=== PATIENT | female | born 1930 | race Caucasian/White ===

== ENCOUNTER 2017-05-31 14:09 | Emergency (ER) | payer MEDICARE, OTHER ==
[~2017-05-31] VITALS: Ht 154.9 cm; Wt 42.2 kg
[~2017-05-31 14:09] MED LIST: AMLODIPINE BESYL5 MG PO; ANASTROZOLE1 MG PO; ASPIRIN EC81 MG PO; ATENOLOL50 MG PO; CALCIUM 500 +1 EAC3 PO; CALCIUM 600 +1 EACH PO; CARBIDOPA-LEVO1 EAC1 PO; ENDOCET 5-3251 EACH PO; ICAPS TABLET1 EACH PO; K-PHOS ORIGINAL1 EA PO; LEVAQUIN500 MG PO; LISINOPRIL20 MG PO; MAGBID ER84 MG PO; MAGNESIUM GLUCO27 MG PO; MEPHYTON5 MG PO; METFORMIN HCL500 M1 PO; METFORMIN HCL500 MG PO; METRONIDAZOLE500 MG PO; OXYCODONE-ACET1 EAC1 PO; POTASSIUM CHLO20 ME1 PO; REQUIP0.25 MG PO; REQUIP0.5 MG PO; TRIAMTERENE-HC1 EAC1 PO; TRIAMTERENE-HC1 EAC3 PO
--- OUTSIDE RECORDS SUMMARY | 2017-05-31 14:25 | XMS ---
Demographics + + + | Address | [address] | | | [place] [address] | + + + | Preferred Language | Unknown | + + + | Marital Status | Unknown | + + + | Gnosticism Affiliation | Unknown | + + + | Race | Unknown | + + + | Ethnic Group | Unknown | + + + Author + + + | Author | [facility] | + + + | Organization | [facility] | + + + | Address | [address] | | | [place] [address] | + + + | Phone | | + + + Care Team Providers + + + + | Care Dye Winch Operator Name | Role | Phone | + + + + Unavailable | Unavailable | + + + + PROBLEMS +---------+ + + +--------+ + + | Type | Condition | ICD9-CM | RNK19-VI | Onset | Condition | SNOMED | | | | Code | Code | Dates | Status | Code | +---------+ + + +--------+ + + | Problem | Restless | | G25.81 | | Active | 44378703 | | | leg | | | | | | | | syndrome | | | | | | +---------+ + + +--------+ + + | Problem | Muscular | R29.898 | | | Active | 446955 | | | deconditio | | | | | | | | krista | | | | | | +---------+ + + +--------+ + + | Problem | Frail | R54 | | | Active | 536217244 | | | elderly | | | | | | +---------+ + + +--------+ + + | Problem | Pain in | | M25.552 | | Active | 321880999 | | | left hip | | | | | | +---------+ + + +--------+ + + | Problem | Encounter | | Z13.89 | | Active | 950279483 | | | for | | | | | | | | screening | | | | | | | | for other | | | | | | | | disorder | | | | | | +---------+ + + +--------+ + + | Problem | Parkinson' | | G20 | | Active | 57769966 | | | s disease | | | | | | +---------+ + + +--------+ + + | Problem | Cephalgia | R51 | | | Active | 30606864 | +---------+ + + +--------+ + + | Problem | Chronic | | N18.3 | | Active | 208599421 | | | kidney | | | | | | | | disease, | | | | | | | | stage 3 | | | | | | +---------+ + + +--------+ + + | Problem | 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 | | | Active | 867361746 | | | ia | | | | | | +---------+ + + +--------+ + + | Problem | History of | Z85.3 | | | Active | 795480705 | | | left | | | | | | | | breast | | | | | | | | cancer | | | | | | +---------+ + + +--------+ + + | Problem | Diabetes | | E11.9 | | Active | 414366698 | | | mellitus | | | | | | | | type 2, | | | | | | | | controlled | | | | | | +---------+ + + +--------+ + + | Problem | Breast | | C50.919 | | Active | 482510163 | | | cancer | | | | | | +---------+ + + +--------+ + + | Problem | Chronic | | G89.4 | | Active | 808769568 | | | pain | | | | | | | | syndrome | | | | | | +---------+ + + +--------+ + + | Problem | HTN | | I10 | | Active | 77486030 | | | (hypertens | | | | | | | | ion) | | | | | | +---------+ + + +--------+ + + | Problem | Osteoporos | | M81.0 | | Active | 48634790 | | | is | | | | | | +---------+ + + +--------+ + + ALLERGIES No Information SOCIAL HISTORY Never Assessed PLAN OF CARE VITAL SIGNS MEDICATIONS Unknown Medications RESULTS No Results PROCEDURES No Known procedures IMMUNIZATIONS No Known Immunizations MEDICAL (GENERAL) HISTORY + + +---------+ | Type | Description | Date | + + +---------+ | Medical History | high blood pressure | | + + +---------+ | Medical History | headache | | + + +---------+ | Medical History | left maxillary sinusitis by | | | | CAT scan done at [facility] | | | | [facility] | | | | [place] 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 06/08/14: | | | | This patient is on ElectraTherm | | | | 5/325, one tablet nightly, | | | | no acceleration, very low | | | | risk. | | + + +---------+ | Medical History | Left breast cancer 2009: | | | | Dr. Madonna louis/yan radiation in | | | | [place], [place] | | + + +---------+ | Surgical History | hysterectomy | | + + +---------+ | Surgical History | cholecystectomy | | + + +---------+ | Surgical History | lumpectomy, left breast | | + + +---------+ | Surgical History | Tyshawn in head from | 02/2015 | | | falling backward on stairs | | + + +---------+"
--- OUTSIDE RECORDS SUMMARY | 2017-05-31 14:25 | XMS ---
Demographics + + + | Address | [address] | | | [place] [address] | + + + | Preferred Language | Unknown | + + + | Marital Status | Unknown | + + + | Methodist Affiliation | Unknown | + + + | Race | Unknown | + + + | Ethnic Group | Unknown | + + + Author + + + | Author | [facility] | + + + | Organization | [facility] | + + + | Address | [address] | | | [place] [address] | + + + | Phone | | + + + Care Team Providers + + + + | Care Baby Stroller Rental Clerk Name | Role | Phone | + + + + Unavailable | Unavailable | + + + + PROBLEMS +---------+ + + +--------+ + + | Type | Condition | ICD9-CM | RNV36-FV | Onset | Condition | SNOMED | | | | Code | Code | Dates | Status | Code | +---------+ + + +--------+ + + | Problem | Osteoporos | | M81.0 | | Active | [id number] | | | is | | | | | | +---------+ + + +--------+ + + | Problem | Frail | R54 | | | Active | 033402111 | | | elderly | | | | | | +---------+ + + +--------+ + + | Problem | Restless | | G25.81 | | Active | 53001009 | | | leg | | | | | | | | syndrome | | | | | | +---------+ + + +--------+ + + | Problem | HTN | | I10 | | Active | 33480356 | | | (hypertens | | | | | | | | ion) | | | | | | +---------+ + + +--------+ + + | Problem | History of | Z85.3 | | | Active | 742831876 | | | left | | | | | | | | breast | | | | | | | | cancer | | | | | | +---------+ + + +--------+ + + | Problem | Diabetes | | E11.9 | | Active | 363480113 | | | mellitus | | | | | | | | type 2, | | | | | | | | controlled | | | | | | +---------+ + + +--------+ + + | Problem | Chronic | | G89.4 | | Active | 472858791 | | | pain | | | | | | | | syndrome | | | | | | +---------+ + + +--------+ + + | Problem | Encounter | | Z13.89 | | Active | 350852227 | | | for | | | | | | | | screening | | | | | | | | for other | | | | | | | | disorder | | | | | | +---------+ + + +--------+ + + | Problem | Chronic | | N18.3 | | Active | 778484176 | | | kidney | | | | | | | | disease, | | | | | | | | stage 3 | | | | | | +---------+ + + +--------+ + + | Problem | Cephalgia | R51 | | | Active | 59718727 | +---------+ + + +--------+ + + | Problem | Muscular | R29.898 | | | Active | 291547 | | | deconditio | | | | | | | | krista | | | | | | +---------+ + + +--------+ + + | Problem | 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 | | | Active | 248477926 | | | ia | | | | | | +---------+ + + +--------+ + + | Problem | Parkinson' | | G20 | | Active | 11548028 | | | s disease | | | | | | +---------+ + + +--------+ + + ALLERGIES + + + + +---------+ | Substance | Reaction | Event Type | Date | Status | + + + + +---------+ | N.K.D.A. | Unknown | Non Drug | Oct, | Unknown | | | | Allergy | | | + + + + +---------+ SOCIAL HISTORY No smoking Hx information available PLAN OF CARE + +---------+ | Activity | Details | + +---------+ +---+ | | +---+ + + + | Follow Up | 4 Weeks Reason:null | + + + VITAL SIGNS + + + + | Height | 61 in | 2016-10-27 | + + + + | Weight | 103 lbs | 2016-10-27 | + + + + | BMI | 19.46 kg/m2 | 2016-10-27 | + + + + | Temperature | 98.3 degrees Fahrenheit | 2016-10-27 | + + + + | Heart Rate | 71 /min | 2016-10-27 | + + + + | Blood pressure systolic | 123 mm Hg | 2016-10-27 | + + + + | Blood pressure diastolic | 69 mm Hg | 2016-10-27 | + + + + MEDICATIONS + + + + + + + +--------+ | Medicati | Instruct | Dosage | Frequenc | Start | End Date | Duration | Status | | on | ions | | y | Date | | | | + + + + + + + +--------+ | Multi | | as | | | | | Active | | Vitamin/ | | directed | | | | | | | Minerals | | | | | | | | + + + + + + + +--------+ | Metformi | Orally | 1 tablet | 24h | | | 60 days | Active | | n & Diet | Once a | | | | | | | | Manage | day | | | | | | | | Prod 500 | | | | | | | | | MG | | | | | | | | + + + + + + + +--------+ | Atenolol | Orally | 1 tablet | 24h | | | | Active | | 50 MG | Once a | | | | | | | | | day | | | | | | | + + + + + + + +--------+ | Carbidop | Orally | 1 tablet | 8h | | | 90 days | Active | | a-Levodo | Three | | | | | | | | pa ER | times a | | | | | | | | 25-100 | day | | | | | | | | MG | | | | | | | | + + + + + + + +--------+ | Triamter | Orally | 1 tablet | 24h | | | | Active | | siomara-HCTZ | Once a | in the | | | | | | | 75-50 | day | morning | | | | | | | MG | | | | | | | | + + + + + + + +--------+ | Lisinopr | Orally | 1 tablet | 24h | | | | Active | | il 20mg | Once a | | | | | | | | | day | | | | | | | + + + + + + + +--------+ | [place] | Orally | 1 tablet | | | 8 Masoud, | 30 days | Active | | 5-325 MG | qhs | as | | | 2016 | | | | | | needed | | | | | | + + + + + + + +--------+ | Felodipi | Orally | 1 tablet | 24h | 18 Feb, | | 30 | Active | | ne ER 5 | Once a | | | 2016 | | day(s) | | | MG | day | | | | | | | + + + + + + + +--------+ | Calcium | Orally | 1 tablet | | | | | Active | | 500 + D | Three | with | | | | | | | 500-125 | times a | food | | | | | | | MG-UNIT | day | | | | | | | + + + + + + + +--------+ | Baby | Orally | 1 tablet | 24h | | | | Active | | Aspirin | Once a | | | | | | | | 81 MG | day | | | | | | | + + + + + + + +--------+ | Vitamin | | 1 tablet | 24h | | | | Active | | D3 - | | | | | | | | + + + + + + + +--------+ RESULTS No Results PROCEDURES + + + + + | Procedure | Date Ordered | Related Diagnosis | Body Site | + + + + + | Office Visit, Est | October 27, 2016 | | | | Pt., Level 3 | | | | + + + + + | [facility] MED/CURRENT | October 27, 2016 | | | | MED MERGE | | | | + + + + + IMMUNIZATIONS No Known Immunizations"
--- OUTSIDE RECORDS SUMMARY | 2017-05-31 14:25 | XMS ---
Demographics + + + | Address | [address] | | | [place] [address] | + + + | Preferred Language | Unknown | + + + | Marital Status | Unknown | + + + | Baptist Affiliation | Unknown | + + + | Race | Unknown | + + + | Ethnic Group | Unknown | + + + Author + + + | Author | [facility] | + + + | Organization | [facility] | + + + | Address | [address] | | | [place] [address] | + + + | Phone | | + + + Care Team Providers + + + + | Care Editor Index Name | Role | Phone | + + + + Unavailable | Unavailable | + + + + PROBLEMS +---------+ + + +--------+ + + | Type | Condition | ICD9-CM | [id number] | Onset | Condition | SNOMED | | | | Code | Code | Dates | Status | Code | +---------+ + + +--------+ + + | Problem | Osteoporos | | M81.0 | | Active | 73673856 | | | is | | | | | | +---------+ + + +--------+ + + | Problem | Frail | R54 | | | Active | 254728524 | | | elderly | | | | | | +---------+ + + +--------+ + + | Problem | Restless | | G25.81 | | Active | 31254910 | | | leg | | | | | | | | syndrome | | | | | | +---------+ + + +--------+ + + | Problem | HTN | | I10 | | Active | 13366157 | | | (hypertens | | | | | | | | ion) | | | | | | +---------+ + + +--------+ + + | Problem | History of | Z85.3 | | | Active | 936414313 | | | left | | | | | | | | breast | | | | | | | | cancer | | | | | | +---------+ + + +--------+ + + | Problem | Diabetes | | E11.9 | | Active | 151670001 | | | mellitus | | | | | | | | type 2, | | | | | | | | controlled | | | | | | +---------+ + + +--------+ + + | Problem | Chronic | | G89.4 | | Active | 629544268 | | | pain | | | | | | | | syndrome | | | | | | +---------+ + + +--------+ + + | Problem | Encounter | | Z13.89 | | Active | 652290553 | | | for | | | | | | | | screening | | | | | | | | for other | | | | | | | | disorder | | | | | | +---------+ + + +--------+ + + | Problem | Chronic | | N18.3 | | Active | 630638244 | | | kidney | | | | | | | | disease, | | | | | | | | stage 3 | | | | | | +---------+ + + +--------+ + + | Problem | Cephalgia | R51 | | | Active | 01289063 | +---------+ + + +--------+ + + | Problem | Muscular | R29.898 | | | Active | 973507 | | | deconditio | | | | | | | | krista | | | | | | +---------+ + + +--------+ + + | Problem | 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
--- OUTSIDE RECORDS SUMMARY | 2017-05-31 14:25 | XMS ---
Demographics + + + | Address | [address] | | | [place] [address] | + + + | Preferred Language | Unknown | + + + | Marital Status | Unknown | + + + | Church Affiliation | Unknown | + + + | Race | Unknown | + + + | Ethnic Group | Unknown | + + + Author + + + | Author | [facility] | + + + | Organization | [facility] | + + + | Address | [address] | | | [place] [address] | + + + | Phone | | + + + Care Team Providers + + + + | Care Ecg Technician Name | Role | Phone | + + + + Unavailable | Unavailable | + + + + PROBLEMS +---------+ + + +--------+ + + | Type | Condition | ICD9-CM | [id number] | Onset | Condition | SNOMED | | | | Code | Code | Dates | Status | Code | +---------+ + + +--------+ + + | Problem | Osteoporos | | M81.0 | | Active | 26650366 | | | is | | | | | | +---------+ + + +--------+ + + | Problem | Frail | R54 | | | Active | 139231834 | | | elderly | | | | | | +---------+ + + +--------+ + + | Problem | Restless | | G25.81 | | Active | 52437017 | | | leg | | | | | | | | syndrome | | | | | | +---------+ + + +--------+ + + | Problem | HTN | | I10 | | Active | 54133272 | | | (hypertens | | | | | | | | ion) | | | | | | +---------+ + + +--------+ + + | Problem | History of | Z85.3 | | | Active | 419054579 | | | left | | | | | | | | breast | | | | | | | | cancer | | | | | | +---------+ + + +--------+ + + | Problem | Diabetes | | E11.9 | | Active | 152736634 | | | mellitus | | | | | | | | type 2, | | | | | | | | controlled | | | | | | +---------+ + + +--------+ + + | Problem | Chronic | | G89.4 | | Active | 465255769 | | | pain | | | | | | | | syndrome | | | | | | +---------+ + + +--------+ + + | Problem | Encounter | | Z13.89 | | Active | 817762511 | | | for | | | | | | | | screening | | | | | | | | for other | | | | | | | | disorder | | | | | | +---------+ + + +--------+ + + | Problem | Chronic | | N18.3 | | Active | 916480487 | | | kidney | | | | | | | | disease, | | | | | | | | stage 3 | | | | | | +---------+ + + +--------+ + + | Problem | Cephalgia | R51 | | | Active | 94199872 | +---------+ + + +--------+ + + | Problem | Muscular | R29.898 | | | Active | 443322 | | | deconditio | | | | | | | | krista | | | | | | +---------+ + + +--------+ + + | Problem | 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 | | | Active | 618569171 | | | ia | | | | | | +---------+ + + +--------+ + + | Problem | Parkinson' | | G20 | | Active | 44000966 | | | s disease | | | | | | +---------+ + + +--------+ + + ALLERGIES Unknown Allergies SOCIAL HISTORY No smoking Hx information available PLAN OF CARE VITAL SIGNS MEDICATIONS Unknown Medications RESULTS No Results PROCEDURES No Known procedures IMMUNIZATIONS No Known Immunizations"
--- OUTSIDE RECORDS SUMMARY | 2017-05-31 14:25 | XMS ---
Demographics + + + | Address | [address] | | | [place] [address] | + + + | Preferred Language | Unknown | + + + | Marital Status | Unknown | + + + | Adventism Affiliation | Unknown | + + + | Race | Unknown | + + + | Ethnic Group | Unknown | + + + Author + + + | Author | [facility] | + + + | Organization | [facility] | + + + | Address | [address] | | | [place] [address] | + + + | Phone | | + + + Care Team Providers + + + + | Care Coding Technician Name | Role | Phone | + + + + Unavailable | Unavailable | + + + + PROBLEMS +---------+ + + +--------+ + + | Type | Condition | ICD9-CM | [id number] | Onset | Condition | SNOMED | | | | Code | Code | Dates | Status | Code | +---------+ + + +--------+ + + | Problem | Restless | | G25.81 | | Active | 96114240 | | | leg | | | | | | | | syndrome | | | | | | +---------+ + + +--------+ + + | Problem | Muscular | R29.898 | | | Active | 348544 | | | deconditio | | | | | | | | krista | | | | | | +---------+ + + +--------+ + + | Problem | Frail | R54 | | | Active | 220578456 | | | elderly | | | | | | +---------+ + + +--------+ + + | Problem | Pain in | | M25.552 | | Active | 295280778 | | | left hip | | | | | | +---------+ + + +--------+ + + | Problem | Encounter | | Z13.89 | | Active | 957306363 | | | for | | | | | | | | screening | | | | | | | | for other | | | | | | | | disorder | | | | | | +---------+ + + +--------+ + + | Problem | Parkinson' | | G20 | | Active | 64419270 | | | s disease | | | | | | +---------+ + + +--------+ + + | Problem | Cephalgia | R51 | | | Active | 60653664 | +---------+ + + +--------+ + + | Problem | Chronic | | N18.3 | | Active | 181080323 | | | kidney | | | | | | | | disease, | | | | | | | | stage 3 | | | | | | +---------+ + + +--------+ + + | Problem | 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 | | | Active | 530492242 | | | ia | | | | | | +---------+ + + +--------+ + + | Problem | History of | Z85.3 | | | Active | 619317525 | | | left | | | | | | | | breast | | | | | | | | cancer | | | | | | +---------+ + + +--------+ + + | Problem | Diabetes | | E11.9 | | Active | 201424253 | | | mellitus | | | | | | | | type 2, | | | | | | | | controlled | | | | | | +---------+ + + +--------+ + + | Problem | Breast | | C50.919 | | Active | 951546497 | | | cancer | | | | | | +---------+ + + +--------+ + + | Problem | Chronic | | G89.4 | | Active | 965152861 | | | pain | | | | | | | | syndrome | | | | | | +---------+ + + +--------+ + + | Problem | HTN | | I10 | | Active | 37757710 | | | (hypertens | | | | | | | | ion) | | | | | | +---------+ + + +--------+ + + | Problem | Osteoporos | | M81.0 | | Active | 68145987 | | | is | | | | | | +---------+ + + +--------+ + + ALLERGIES + + + + +---------+ | Substance | Reaction | Event Type | Date | Status | + + + + +---------+ | N.K.D.A. | Unknown | Non Drug | Nov, | Unknown | | | | Allergy [...] + | Height | 61 in | 2016-12-13 | + + + + | Weight | 101.8 lbs | 2016-12-13 | + + + + | BMI | 19.23 kg/m2 | 2016-12-13 | + + + + | Temperature | 97.6 degrees Fahrenheit | 2016-12-13 | + + + + | Heart Rate | 72 /min | 2016-12-13 | + + + + | Blood pressure systolic | 95 mm Hg | 2016-12-13 | + + + + | Blood pressure diastolic | 44 mm Hg | 2016-12-13 | + + + + MEDICATIONS + [...] + + + + + +--------+ | [place] | Orally | 1 tablet | | 10 Masoud, | 24 Dec, | 30 days | Active | | 5-325 MG | qhs | as | | 2017 | 2017 | | | | | | needed [...] | 1 tablet | 24h | 18 Jun, | | 30 | Active | | ne ER 5 | Once a | | | 2015 | | day(s) | | | MG | day | | | | | | | + + + + + + + +--------+ RESULTS No Results PROCEDURES + + + + + | Procedure | Date Ordered | Related Diagnosis | Body Site | + + + + + | Office Visit, Est | December 13, 2016 | | | | Pt., Level 3 | | | | + + + + + | [facility] MED/CURRENT | December 13, 2016 | | | | MED MERGE | | | | + + + + + IMMUNIZATIONS No Known Immunizations"
--- OUTSIDE RECORDS SUMMARY | 2017-05-31 14:25 | XMS ---
Demographics + + + | Address | [address] | | | [place] [address] | + + + | Preferred Language | Unknown | + + + | Marital Status | Unknown | + + + | Yazidism Affiliation | Unknown | + + + | Race | Unknown | + + + | Ethnic Group | Unknown | + + + Author + + + | Author | [facility] | + + + | Organization | [facility] | + + + | Address | [address] | | | [place] [address] | + + + | Phone | | + + + Care Team Providers + + + + | Care Planer Feeder Name | Role | Phone | + + + + Unavailable | Unavailable | + + + + PROBLEMS +---------+ + + +--------+ + + | Type | Condition | ICD9-CM | [id number] | Onset | Condition | SNOMED | | | | Code | Code | Dates | Status | Code | +---------+ + + +--------+ + + | Problem | Osteoporos | | M81.0 | | Active | 88141687 | | | is | | | | | | +---------+ + + +--------+ + + | Problem | Frail | R54 | | | Active | 748297051 | | | elderly | | | | | | +---------+ + + +--------+ + + | Problem | Restless | | G25.81 | | Active | 47143607 | | | leg | | | | | | | | syndrome | | | | | | +---------+ + + +--------+ + + | Problem | HTN | | I10 | | Active | 14099203 | | | (hypertens | | | | | | | | ion) | | | | | | +---------+ + + +--------+ + + | Problem | History of | Z85.3 | | | Active | 932615671 | | | left | | | | | | | | breast | | | | | | | | cancer | | | | | | +---------+ + + +--------+ + + | Problem | Diabetes | | E11.9 | | Active | 089154525 | | | mellitus | | | | | | | | type 2, | | | | | | | | controlled | | | | | | +---------+ + + +--------+ + + | Problem | Chronic | | G89.4 | | Active | 986778603 | | | pain | | | | | | | | syndrome | | | | | | +---------+ + + +--------+ + + | Problem | Encounter | | Z13.89 | | Active | 284318014 | | | for | | | | | | | | screening | | | | | | | | for other | | | | | | | | disorder | | | | | | +---------+ + + +--------+ + + | Problem | Chronic | | N18.3 | | Active | 162453785 | | | kidney | | | | | | | | disease, | | | | | | | | stage 3 | | | | | | +---------+ + + +--------+ + + | Problem | Cephalgia | R51 | | | Active | 68513171 | +---------+ + + +--------+ + + | Problem | Muscular | R29.898 | | | Active | 224038 | | | deconditio | | | | | | | | krista | | | | | | +---------+ + + +--------+ + + | Problem | 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 | | | Active | 243169130 | | | ia | | | | | | +---------+ + + +--------+ + + | Problem | Parkinson' | | G20 | | Active | 01503585 | | | s disease | | | | | | +---------+ + + +--------+ + + ALLERGIES Unknown Allergies SOCIAL HISTORY No smoking Hx information available PLAN OF CARE VITAL SIGNS MEDICATIONS + + + + + + [...] | 1 tablet | 24h | 18 b, | | 30 | Active | | ne ER 5 | Once a | | | 2016 | | day(s) | | | MG | day | | | | | | | + + + + + + + +--------+ | [place] | Orally | 1 tablet | | 10 Nov, | 9 Dec, | 30 | Active | | 5-325 MG | qhs | as | | 2017 | 2017 | day(s) | | | | | needed | [...] + + +--------+ RESULTS No Results PROCEDURES No Known procedures IMMUNIZATIONS No Known Immunizations"
--- OUTSIDE RECORDS SUMMARY | 2017-05-31 14:25 | XMS ---
Demographics + + + | Address | [address] | | | [place] [address] | + + + | Preferred Language | Unknown | + + + | Marital Status | Unknown | + + + | Judaism Affiliation | Unknown | + + + | Race | Unknown | + + + | Ethnic Group | Unknown | + + + Author + + + | Author | [facility] | + + + | Organization | [facility] | + + + | Address | [address] | | | [place] [address] | + + + | Phone | | + + + Care Team Providers + + + + | Care Helmet Hat Sweatband Puncher Name | Role | Phone | + + + + Unavailable | Unavailable | + + + + PROBLEMS +---------+ + + +--------+ + + | Type | Condition | ICD9-CM | [id number] | Onset | Condition | SNOMED | | | | Code | Code | Dates | Status | Code | +---------+ + + +--------+ + + | Problem | Osteoporos | | M81.0 | | Active | [id number] | | | is | | | | | | +---------+ + + +--------+ + + | Problem | Frail | R54 | | | Active | [id number] | | | elderly | | | | | | +---------+ + + +--------+ + + | Problem | Restless | | G25.81 | | Active | 00343406 | | | leg | | | | | | | | syndrome | | | | | | +---------+ + + +--------+ + + | Problem | HTN | | I10 | | Active | 07573619 | | | (hypertens | | | | | | | | ion) | | | | | | +---------+ + + +--------+ + + | Problem | History of | Z85.3 | | | Active | [id number] | | | left | | | | | | | | breast | | | | | | | | cancer | | | | | | +---------+ + + +--------+ + + | Problem | Diabetes | | E11.9 | | Active | 255567436 | | | mellitus | | | | | | | | type 2, | | | | | | | | controlled | | | | | | +---------+ + + +--------+ + + | Problem | Chronic | | G89.4 | | Active | 964121118 | | | pain | | | | | | | | syndrome | | | | | | +---------+ + + +--------+ + + | Problem | Encounter | | Z13.89 | | Active | 920052799 | | | for | | | | | | | | screening | | | | | | | | for other | | | | | | | | disorder | | | | | | +---------+ + + +--------+ + + | Problem | Chronic | | N18.3 | | Active | 322417608 | | | kidney | | | | | | | | disease, | | | | | | | | stage 3 | | | | | | +---------+ + + +--------+ + + | Problem | Cephalgia | R51 | | | Active | 63422240 | +---------+ + + +--------+ + + | Problem | Muscular | R29.898 | | | Active | 104073 | | | deconditio | | | | | | | | krista | | | | | | +---------+ + + +--------+ + + | Problem | 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
--- OUTSIDE RECORDS SUMMARY | 2017-05-31 14:25 | XMS ---
Demographics + + + | Address | [address] | | | [place] [address] | + + + | Preferred Language | Unknown | + + + | Marital Status | Unknown | + + + | Voodoo Affiliation | Unknown | + + + | Race | Unknown | + + + | Ethnic Group | Unknown | + + + Author + + + | Author | [facility] | + + + | Organization | [facility] | + + + | Address | [address] | | | [place] [address] | + + + | Phone | | + + + Care Team Providers + + + + | Care Cardiothoracic Anesthesia Technician Name | Role | Phone | + + + + Unavailable | Unavailable | + + + + PROBLEMS +---------+ + + +--------+ + + | Type | Condition | ICD9-CM | [id number] | Onset | Condition | SNOMED | | | | Code | Code | Dates | Status | Code | +---------+ + + +--------+ + + | Problem | Restless | | G25.81 | | Active | 66592070 | | | leg | | | | | | | | syndrome | | | | | | +---------+ + + +--------+ + + | Problem | Muscular | R29.898 | | | Active | 567026 | | | deconditio | | | | | | | | krista | | | | | | +---------+ + + +--------+ + + | Problem | Frail | R54 | | | Active | 537646399 | | | elderly | | | | | | +---------+ + + +--------+ + + | Problem | Pain in | | M25.552 | | Active | 234162908 | | | left hip | | | | | | +---------+ + + +--------+ + + | Problem | Encounter | | Z13.89 | | Active | 697323901 | | | for | | | | | | | | screening | | | | | | | | for other | | | | | | | | disorder | | | | | | +---------+ + + +--------+ + + | Problem | Parkinson' | | G20 | | Active | 91192662 | | | s disease | | | | | | +---------+ + + +--------+ + + | Problem | Cephalgia | R51 | | | Active | 79278060 | +---------+ + + +--------+ + + | Problem | Chronic | | N18.3 | | Active | 613763092 | | | kidney | | | | | | | | disease, | | | | | | | | stage 3 | | | | | | +---------+ + + +--------+ + + | Problem | 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 | | | Active | 177727413 | | | ia | | | | | | +---------+ + + +--------+ + + | Problem | History of | Z85.3 | | | Active | 884067400 | | | left | | | | | | | | breast | | | | | | | | cancer | | | | | | +---------+ + + +--------+ + + | Problem | Diabetes | | E11.9 | | Active | 296803894 | | | mellitus | | | | | | | | type 2, | | | | | | | | controlled | | | | | | +---------+ + + +--------+ + + | Problem | Breast | | C50.919 | | Active | 088048490 | | | cancer | | | | | | +---------+ + + +--------+ + + | Problem | Chronic | | G89.4 | | Active | 221034092 | | | pain | | | | | | | | syndrome | | | | | | +---------+ + + +--------+ + + | Problem | HTN | | I10 | | Active | 62435427 | | | (hypertens | | | | | | | | ion) | | | | | | +---------+ + + +--------+ + + | Problem | Osteoporos | | M81.0 | | Active | 13806475 | | | is | | | [...] | | | CAT scan done at [facility] | | | | [facility] | | | | Ro. January 2015 [...] | | | This patient is on [employer] | | | | 5/325, one tablet [...]
--- OUTSIDE RECORDS SUMMARY | 2017-05-31 14:25 | XMS ---
Demographics + + + | Address | [address] | | | [place] [address] | + + + | Preferred Language | Unknown | + + + | Marital Status | Unknown | + + + | Mandaen Affiliation | Unknown | + + + | Race | Unknown | + + + | Ethnic Group | Unknown | + + + Author + + + | Author | [facility] | + + + | Organization | [facility] | + + + | Address | [address] | | | [place] [address] | + + + | Phone | | + + + Care Team Providers + + + + | Care Letter Of Credit Clerk Name | Role | Phone | + + + + Unavailable | Unavailable | + + + + PROBLEMS + + + + + + + + | Type | Condition | ICD9-CM | [id number] | Onset | Condition | SNOMED | | | | Code | Code | Dates | Status | Code | + + + + + + + + | Problem | Osteoporos | | M81.0 | | Active | [id number] | | | is | | | | | | + + + + + + + + | Problem | Frail | R54 | | | Active | 137978596 | | | elderly | | | | | | + + + + + + + + | Problem | Restless | | G25.81 | | Active | 78622011 | | | leg | | | | | | | | syndrome | | | | | | + + + + + + + + | Problem | Encounter | | Z13.89 | | Active | 231839169 | | | for | | | | | | | | screening | | | | | | | | for other | | | | | | | | disorder | | | | | | + + + + + + + + | Problem | Chronic | | N18.3 | | Active | 747781771 | | | kidney | | | | | | | | disease, | | | | | | | | stage 3 | | | | | | + + + + + + + + | Problem | Cephalgia | R51 | | | Active | 03396307 | + + + + + + + + | Problem | Muscular | R29.898 | | | Active | 819688 | | | deconditio | | | | | | | | krista | | | | | | + + + + + + + + | Problem | 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 | | | Active | 838826180 | | | ia | | | | | | + + + + + + + + | Problem | Parkinson' | | G20 | | Active | 44223066 | | | s disease | | | | | | + + + + + + + + | Problem | HTN | | I10 | | Active | 57641581 | | | (hypertens | | | | | | | | ion) | | | | | | + + + + + + + + | Problem | History of | Z85.3 | | | Active | 871363485 | | | left | | | | | | | | breast | | | | | | | | cancer | | | | | | + + + + + + + + | Problem | Diabetes | | E11.9 | | Active | [id number] | | | mellitus | | | | | | | | type 2, | | | | | | | | controlled | | | | | | + + + + + + + + | Assessment | HTN | | I10 | 07 Aug, | Active | 16379665 | | | (hypertens | | | 2017 | | | | | ion) | | | | | | + + + + + + + + | Problem | Chronic | | G89.4 | | Active | [id number] | | | pain | | | | | | | | syndrome | | | | | | + + + + + + + + ALLERGIES Unknown Allergies SOCIAL HISTORY No smoking Hx information available PLAN OF CARE VITAL SIGNS + + + + | Height | 61 in | 2016-08-26 | + + + + | Weight | 105 lbs | 2016-08-26 | + + + + | BMI | 19.84 kg/m2 | 2016-08-26 | + + + + | Temperature | 98.1 degrees Fahrenheit | 2016-08-26 | + + + + | Heart Rate | 107 /min | 2016-08-26 | + + + + MEDICATIONS + + + + + + + +--------+ | Medicati | Instruct | Dosage | Frequenc | Start | End Date | Duration | Status | | on | ions | | y | Date | | | | + + + + + + + +--------+ | Fork | Orally | 1 tablet | | | | 30 days | Active | | 5-325 MG | qhs | as | | | | | | | | | needed [...] + +--------+ | Carbidop | Orally | 1/2 | 8h | | | 90 days | Active | | a-Levodo | Three | tablet | | | | | | | pa ER | times a | every 6 | | | | | | | 25-100 | day | hours | | | | | | | MG | | while | | | | | | | | | awake | | | | | | + [...] | + + + + + | Est Level II | August 26, 2016 | | | | Limited | | | | + + + + + | [id number] MED/CURRENT | August 26, 2016 | | | | MED MERGE | | | | + + + + + IMMUNIZATIONS No Known Immunizations"
[2017-05-31] MEDS ORDERED: CIPRO250 MG PO (16:02)
== END 2017-05-31 18:20 | disposition home or self-care (01) ==
LOC: ED 14:09
DX: N39.0 Urinary tract infection, site not specified (principal); E86.0 Dehydration; E11.9 Type 2 diabetes mellitus without complications; Z85.3 Personal history of malignant neoplasm of breast; Z90.710 Acquired absence of both cervix and uterus; Z90.49 Acquired absence of other specified parts of digestive tract; Z88.7 Allergy status to serum and vaccine; Z79.899 Other long term (current) drug therapy; Z79.82 Long term (current) use of aspirin; Z79.84 Long term (current) use of oral hypoglycemic drugs
CPT/HCPCS: 70450; 71045; 80048; 81001; 85025; 99284; J7030

== ENCOUNTER 2017-07-20 05:44 | Emergency (ER) | payer MEDICARE, OTHER ==
[~2017-07-20] VITALS: Ht 154.9 cm; Wt 42.2 kg
[~2017-07-20 05:44] MED LIST changes: +CIPRO250 MG PO
[2017-07-20] MEDS ORDERED: CARBIDOPA-LEVO1 EAC5 (06:27)
[2017-07-20] MEDS ORDERED: ZYPREXA2.5 MG PO (06:28)
[2017-07-20] MEDS ORDERED: CIPRO250 MG PO (07:28)
--- NOTE | 2017-07-20 07:31 | EKG ---
[facility] [address] [facility] [place], [place] [address] Signed Normal sinus rhythm with sinus arrhythmia Normal ECG No previous ECGs available Confirmed by ED ANDREW MD ([id number]) on 07/20/2017 7:31:26 AM Electronically Signed By: ED ANDREW MD 07/20/17 0731 PATIENT NAME: MARCOS ALVA Electrocardiogram DATE OF : 34 PHYSICIAN: ED ANDREW MD REPORT #: [id number] REPORT IS CONFIDENTIAL AND NOT TO BE RELEASED WITHOUT AUTHORIZATION
== END 2017-07-20 07:48 | disposition home or self-care (01) ==
LOC: ED 05:44
PROC: 0T9B70Z Drainage of Bladder with Drainage Device, Via Natural or Artificial Opening (ICD-10-PCS; principal; 2017-07-20)
DX: T14.8XXA Other injury of unspecified body region, initial encounter (principal); N39.0 Urinary tract infection, site not specified; J32.9 Chronic sinusitis, unspecified; B37.89 Other sites of candidiasis; E11.9 Type 2 diabetes mellitus without complications; Z85.3 Personal history of malignant neoplasm of breast; Z79.899 Other long term (current) drug therapy; W19.XXXA Unspecified fall, initial encounter
CPT/HCPCS: 36415; 51701; 70450; 73110; 73502; 80053; 81001; 84484; 85025; 85610; 85730; 87088; 93005; 93010; 99284

== ENCOUNTER 2017-07-22 09:45 | Emergency (ER) | payer MEDICARE, OTHER ==
[~2017-07-22] VITALS: Ht 154.9 cm; Wt 43.1 kg
[~2017-07-22 09:45] MED LIST changes: +CARBIDOPA-LEVO1 EAC5; +ZYPREXA2.5 MG PO
== END 2017-07-22 12:25 | disposition home or self-care (01) ==
LOC: ED 09:45
DX: S73.102A Unspecified sprain of left hip, initial encounter (principal); S76.012A Strain of muscle, fascia and tendon of left hip, initial encounter; E11.9 Type 2 diabetes mellitus without complications; X58.XXXA Exposure to other specified factors, initial encounter
CPT/HCPCS: 73502; 73610; 73650; 99283